=== PATIENT | male | born 1950 | race Caucasian/White ===

== ENCOUNTER 2017-07-28 23:51 | Inpatient (IN) | payer OTHER ==
[~2017-07-28] VITALS: Ht 182.9 cm; Wt 121.1 kg
[~2017-07-28 23:51] MED LIST: ALBU90OI INH; ATORVASTATIN CA80 MG PO; Aspirin EC81 MG; Atenolol50 MG PO; BUDE6HFA INH; CLON.5 PO; FLUSAL2505 INH; Flomax0.4 MG PO; SERT100 PO
[2017-07-29] MEDS ORDERED: METO50ER PO (00:28)
[2017-07-29 01:18] LABS: PCO2 Arterial 55.4 mmHg (35-45); PO2 Arterial 54.6 mmHg (80-100); pH Blood Arterial 7.35 (7.35-7.45)
[2017-07-29 01:24] LABS: BASOPHILS ABSOLUTE AUTO 0.04 K/mm3 (0.00-0.23); BASOPHILS PERCENT AUTO 1 % (0-2); EOSINOPHILS ABSOLUTE AUTO 0.12 K/mm3 (0.00-0.68); EOSINOPHILS PERCENT AUTO 2 % (0-6); Hematocrit 46.1 % (37.0-53.0); IMMATURE GRAN ABSOLUTE AUTO 0.03 K/mm3 (0.00-0.10); IMMATURE GRAN PERCENT AUTO 0 % (0-1); LYMPHOCYTES PERCENT AUTO 22 % (21-46); MONOCYTES PERCENT AUTO 11 % (4-13); Mean Corpuscular HGB 31.6 pg (26.0-34.0); Mean Corpuscular HGB Conc 32.5 g/dL (31.5-36.5); Mean Corpuscular Volume 97 fL (80-100); Mean Platelet Volume 9.7 fL (9.1-12.4); NEUTROPHILS ABSOLUTE AUTO 5.13 K/mm3 (1.96-9.15); NEUTROPHILS PERCENT AUTO 65 % (41-73); Platelet Count 151 K/mm3 (150-400); RDW Coefficient Variation 12.8 % (11.7-14.2); RDW Standard Deviation 45.9 fL (35.1-46.3); Red Blood Cell Count 4.74 M/mm3 (4.30-5.90); White Blood Cell Count 7.92 K/mm3 (4.00-11.30)
[2017-07-29 01:45] LABS: Alanine Aminotransfer (ALT/SGP 30 U/L (12-78); Albumin, Blood 3.4 g/dL (3.4-5.0); Albumin/Globulin Ratio 0.9 (0.8-1.8); Alk Phos 54 U/L (50-136); Anion Gap 5 mmol/L (6-16); Aspartate Aminotrans (AST/SGOT 21 U/L (12-37); Bilirubin, Total 0.5 mg/dL (0.1-1.0); Blood Urea Nitrogen 12 mg/dL (8-24); Bun/Creatinine Ratio 18.5 (12.0-20.0); CO2, Blood 29 mmol/L (21-32); Calcium, Blood 8.6 mg/dL (8.5-10.1); Chloride, Blood 107 mmol/L (98-108); Creatinine, Blood 0.65 mg/dL (0.60-1.20); Globulin, Blood 3.8 g/dL (2.2-4.0); Glomerular Filtration Rate >60 (60-); Glucose, Blood 121 mg/dL (70-99); Potassium, Blood 4.4 mmol/L (3.5-5.5); Sodium, Blood 141 mmol/L (136-145); Total Protein, Blood 7.2 g/dL (6.4-8.2); Troponin I <0.015 ng/mL (0.000-0.040)
[2017-07-30] MEDS ORDERED: ALBU3IS INH (13:49)
[2017-07-30] MEDS ORDERED: PRED20 PO (13:52)
[2017-12-04] MEDS ORDERED: ATEN50 (11:40)
[2017-12-04] MEDS ORDERED: Aspirin EC81 MG (11:41)
[2017-12-04] MEDS ORDERED: Rapaflo8 MG (11:41)
== END 2017-07-30 16:01 | disposition home or self-care (01) | DRG 189 ==
LOC: ER 23:51 → MEDS 23:52 → ENPENDDIS 07-30 11:00 → MEDS 07-30 16:01
PROVIDERS: Physician Assistant
DX: J96.02 Acute respiratory failure with hypercapnia (principal); J44.1 Chronic obstructive pulmonary disease with (acute) exacerbation; I25.10 Atherosclerotic heart disease of native coronary artery without angina pectoris; J96.01 Acute respiratory failure with hypoxia; I10 Essential (primary) hypertension; E78.5 Hyperlipidemia, unspecified; F17.200 Nicotine dependence, unspecified, uncomplicated; Z95.5 Presence of coronary angioplasty implant and graft; Z79.899 Other long term (current) drug therapy; Z85.51 Personal history of malignant neoplasm of bladder
CPT/HCPCS: 36415; 36600; 71046; 80053; 82803; 84145; 84484; 85025; 87070; 87077; 87186; 87205; 93005; 93010; 94640; 94644; 94760; 94761; 96372; 96374; 96376; 99285; G0378; J1650; J2930

== ENCOUNTER 2019-02-04 11:50 | Day surgery (SDC) | payer MEDICARE, OTHER ==
[~2019-02-04] VITALS: Ht 190.5 cm; Wt 133.2 kg
[~2019-02-04 11:50] MED LIST changes: +ALBU3IS INH; +ATEN50; +Aspir 8181 MG PO; +Crestor20 MG PO; +FINA5 PO; +METO50ER PO; +Nitrostat0.3 MG SL; +PRED20 PO; +Rapaflo8 MG; +SERT25 PO; +TAMS.4ER PO
--- NOTE | 2019-02-04 12:31 | NUR ---
02/04/19 1231 Krystyna Souza 1 IV MISS IN RH BY NARESH SHIELDS 1 GOOD IV IN RAC BY NARESH CHAPPELL TOW
--- NOTE | 2019-02-04 13:15 | NUR ---
02/04/19 1315 Ángela Ribeiro LATE ENTRY--PATIENT IN THE ROOM AND HOOKED UP TO MONITOR AND DR ESCOBAR PUSHED FIRST DOSE OF PROPOFOL. IV INFILTRATED. THIS WAS RESTARTED BY DR ESCOBAR IN LEFT WRIST WITH 20G. PATIENT TOLERATE IV START WELL. CASE PROCEEDED
== END 2019-02-04 14:41 | disposition home or self-care (01) ==
LOC: ORSCSDS 11:50
PROVIDERS: Internal Medicine Gastroenterology
PROC: 0DBL8ZX Excision of Transverse Colon, Via Natural or Artificial Opening Endoscopic, Diagnostic (ICD-10-PCS; principal; 2019-02-04 13:00)
PROC: 0DBH8ZX Excision of Cecum, Via Natural or Artificial Opening Endoscopic, Diagnostic (ICD-10-PCS; principal; 2019-02-04 13:00)
PROC: 0DBN8ZX Excision of Sigmoid Colon, Via Natural or Artificial Opening Endoscopic, Diagnostic (ICD-10-PCS; principal; 2019-02-04 13:00)
PROC: 0DBK8ZX Excision of Ascending Colon, Via Natural or Artificial Opening Endoscopic, Diagnostic (ICD-10-PCS; principal; 2019-02-04 13:00)
PROC: 0DBP8ZX Excision of Rectum, Via Natural or Artificial Opening Endoscopic, Diagnostic (ICD-10-PCS; principal; 2019-02-04 13:00)
DX: Z12.11 Encounter for screening for malignant neoplasm of colon (principal); Z86.010 Personal history of colon polyps; D12.0 Benign neoplasm of cecum; D12.2 Benign neoplasm of ascending colon; D12.3 Benign neoplasm of transverse colon; K63.5 Polyp of colon; D12.8 Benign neoplasm of rectum; K57.30 Diverticulosis of large intestine without perforation or abscess without bleeding; K64.8 Other hemorrhoids; I10 Essential (primary) hypertension; G47.33 Obstructive sleep apnea (adult) (pediatric); I25.10 Atherosclerotic heart disease of native coronary artery without angina pectoris; J44.9 Chronic obstructive pulmonary disease, unspecified; F17.210 Nicotine dependence, cigarettes, uncomplicated; E66.01 Morbid (severe) obesity due to excess calories; Z68.38 Body mass index [BMI] 38.0-38.9, adult; Z79.899 Other long term (current) drug therapy
CPT/HCPCS: 88305; J2704; J7120

== ENCOUNTER 2019-04-11 10:04 | Day surgery (SDC) | payer MEDICARE, OTHER ==
[~2019-04-11] VITALS: Ht 185.4 cm; Wt 134.6 kg
[~2019-04-11 10:04] MED LIST changes: +DILT120 PO
[2019-04-11] MEDS ORDERED: Aspir 8181 MG PO (10:46)
[2019-04-11] MEDS ORDERED: CLON1 PO (10:47)
--- NOTE | 2019-04-11 12:18 | NUR ---
PT BACK TO ROOM VIA RECLINER AFTER PROCEDURE. DENIES PAIN OR NEEDS. VSS, CALL LIGHT IN REACH. RIGHT RADIAL SITE WITH TR BAND AND SPLINT IN PLACE. NO BLEEDING OR SWELLING NOTED AT SITE.
--- NOTE | 2019-04-11 13:19 | NUR ---
PT VISITING WITH , EATING LUNCH. RIGHT RADIAL SITE REMAINS CDI, PT DENIES DISCOMFORT TO THE AREA.
--- NOTE | 2019-04-11 13:25 | NUR ---
IV DC'D, CATH INTACT. PT AND SPOUSE HAVE VERBALIZED UNDERSTANDING OF DC INSTRUCTIONS AND FOLLOW UP INFO. PT OUT TO CAR VIA WHEELCHAIR.
[2019-04-11] MEDS ORDERED: CLOP75 PO (13:35)
[2019-04-11] MEDS ORDERED: Isosorbide Mono30 MG PO (13:36)
--- NOTE | 2019-04-11 14:44 | NUR ---
TR BAND HAS BEEN FULLY DEFLATED. NO BLEEDING OR SWELLING AT THE SITE.
== END 2019-04-11 15:25 | disposition home or self-care (01) ==
LOC: MHTC 10:04
PROC: B201YZZ Plain Radiography of Multiple Coronary Arteries using Other Contrast (ICD-10-PCS; principal; 2019-04-11)
PROC: 4A023N7 Measurement of Cardiac Sampling and Pressure, Left Heart, Percutaneous Approach (ICD-10-PCS; principal; 2019-04-11)
PROC: B205YZZ Plain Radiography of Left Heart using Other Contrast (ICD-10-PCS; principal; 2019-04-11)
DX: I25.118 Atherosclerotic heart disease of native coronary artery with other forms of angina pectoris (principal); I25.82 Chronic total occlusion of coronary artery; J45.909 Unspecified asthma, uncomplicated; E78.5 Hyperlipidemia, unspecified; I47.1 Supraventricular tachycardia; F17.210 Nicotine dependence, cigarettes, uncomplicated; Z79.899 Other long term (current) drug therapy; Z79.82 Long term (current) use of aspirin
CPT/HCPCS: 76937; 85347; 93458; 93571; 99152; 99153; C1769; C1887; C1894; J1644; J2250; J3010; J7030; Q9967

== ENCOUNTER → 2019-07-06 | Outpatient (CLI) | payer MEDICARE, OTHER ==
[~2019-07-06] MED LIST changes: +CLON1 PO; +CLOP75 PO; +Isosorbide Mono30 MG PO
== END | disposition home or self-care (01) ==
LOC: LAB SHORT 14:59 → PLD 14:59
DX: D23.5 Other benign neoplasm of skin of trunk (principal)
CPT/HCPCS: 88305

== ENCOUNTER 2020-06-12 10:17 | Day surgery (SDC) | payer MEDICARE, OTHER ==
[~2020-06-12] VITALS: Ht 185.4 cm; Wt 143.0 kg
[2020-06-12] MEDS ORDERED: FINA5 PO (10:46)
[2020-06-12] MEDS ORDERED: FISH OIL 1,2001 EAC7 PO (10:49)
[2020-06-12] MEDS ORDERED: Vitamin D2000 UNIT PO (10:50)
[2020-06-12] MEDS ORDERED: CENTRUM SILVER1 EAC2 PO (10:50)
--- NOTE | 2020-06-12 11:18 | NUR ---
06/12/20 1118 Misti Laird IV ATTEMPT X 2 IN RIGHT HAND BY ME, ONCE IN LEFT FA BY NAERSH MIRANDA, SUCCESS IN RIGHT A/C BY JOAN INFANTE
--- NOTE | 2020-06-12 12:52 | NUR ---
06/12/20 1252 JOAN JOHNSTON 6.5ML NS INJECTED TO ELEVATE SIGMOID COLON POLYPS
== END 2020-06-12 13:13 | disposition home or self-care (01) ==
LOC: ORSCSDS 10:17
PROVIDERS: Internal Medicine Gastroenterology
PROC: 0DBN8ZX Excision of Sigmoid Colon, Via Natural or Artificial Opening Endoscopic, Diagnostic (ICD-10-PCS; principal; 2020-06-12 11:30)
PROC: 0DBL8ZX Excision of Transverse Colon, Via Natural or Artificial Opening Endoscopic, Diagnostic (ICD-10-PCS; principal; 2020-06-12 11:30)
DX: Z86.010 Personal history of colon polyps (principal); D12.3 Benign neoplasm of transverse colon; D12.5 Benign neoplasm of sigmoid colon; K57.30 Diverticulosis of large intestine without perforation or abscess without bleeding; K64.8 Other hemorrhoids; I10 Essential (primary) hypertension; J44.9 Chronic obstructive pulmonary disease, unspecified; G47.33 Obstructive sleep apnea (adult) (pediatric); Z87.891 Personal history of nicotine dependence; Z79.899 Other long term (current) drug therapy; Z79.82 Long term (current) use of aspirin
CPT/HCPCS: 88305; J2250; J2405; J2704; J7120

== ENCOUNTER → 2021-01-24 | Outpatient (CLI) | payer MEDICARE, OTHER ==
[~2021-01-24] MED LIST changes: +CENTRUM SILVER1 EAC2 PO; +FISH OIL 1,2001 EAC7 PO; +Vitamin D2000 UNIT PO
== END | disposition home or self-care (01) ==
LOC: LAB SHORT 11:17
DX: L30.8 Other specified dermatitis (principal)
CPT/HCPCS: 88305; 88312

== ENCOUNTER → 2022-11-24 | Outpatient (CLI) | payer MEDICARE, OTHER ==
[~2022-11-24] MED LIST changes: +AVALIDE 300-121 EACH PO; +Amoxicillin875 MG PO; +BREZTRI AEROS10.7 GM INH; +Crestor40 MG PO; +EZET10 PO; +IRBE150 PO; +METF500C PO; +MONT10T PO; +Prednisone20 MG PO
== END | disposition home or self-care (01) ==
LOC: LAB SHORT 12:04 → PLD 12:04
DX: D48.5 Neoplasm of uncertain behavior of skin (principal)
CPT/HCPCS: 88305

== ENCOUNTER → 2023-06-11 | Outpatient (CLI) | payer MEDICARE, OTHER | LOC: PLD 12:14 → LAB SHORT 12:14 | DX: L72.8 Other follicular cysts of the skin and subcutaneous tissue (principal) | CPT/HCPCS: 88304 ==

== ENCOUNTER 2024-03-11 09:03 | Day surgery (SDC) | payer MEDICARE, OTHER ==
[~2024-03-11] VITALS: Ht 185.4 cm; Wt 138.2 kg
[~2024-03-11 09:03] MED LIST changes: +1/2 NS 250ml250 ML; +ALBU2.5V5 INH; +ALBU8HFA2 INH; +ALBU90OI; +FISH OIL 1,0001 EA10 PO; +GABA100 PO; +IPRAT-ALBUT 0.5-3 ML INH; +Imdur30 MG PO; +JARDIANCE10 MG PO; +LEVO750 PO; +METF500 PO; +METO25ER PO; +NITR.4SL SL; +Prednisone10 MG PO; +SERT50 PO; +TRAZ50 PO; +VISBIOME 112.51 EACH PO; +VITAMIN D350 MC3 PO
[2024-03-11] MEDS ORDERED: Lactated Ringer's 1,000 ML IV ONE ×2 (09:36→10:13)
[2024-03-11] MEDS ORDERED: MONT10T (09:46)
[2024-03-11] MEDS ORDERED: propofoL 50 ML IV ONE ×3 (10:11→11:03)
[2024-03-11 12:24] VITALS: BP 153/76
--- NOTE | 2024-03-11 12:30 | NUR ---
03/11/24 1230 Lisa Zapata WHEN ASKED PT. IF HE HAD ANY PAIN, PT. VERBALIZES HIS ABDOMEN FELT "CRAMPY & ACHY." PT. INSTRUCTED THAT IT MAY BE SOME AIR STILL LEFT IN HIS COLON & TO PASS OUT AIR BUT EVENTUALLY IT WOULD ABSORB. PT. VERBALIZES ABD. PAIN WAS TOLERABLE.
== END 2024-03-11 12:13 | disposition home or self-care (01) ==
LOC: ORSCSDS 09:03
PROVIDERS: Internal Medicine Gastroenterology
PROC: 0DBP8ZX Excision of Rectum, Via Natural or Artificial Opening Endoscopic, Diagnostic (ICD-10-PCS; principal; 2024-03-11 10:15)
PROC: 0DBH8ZX Excision of Cecum, Via Natural or Artificial Opening Endoscopic, Diagnostic (ICD-10-PCS; principal; 2024-03-11 10:15)
PROC: 0DBL8ZX Excision of Transverse Colon, Via Natural or Artificial Opening Endoscopic, Diagnostic (ICD-10-PCS; principal; 2024-03-11 10:15)
PROC: 0DBM8ZX Excision of Descending Colon, Via Natural or Artificial Opening Endoscopic, Diagnostic (ICD-10-PCS; principal; 2024-03-11 10:15)
PROC: 0DBK8ZX Excision of Ascending Colon, Via Natural or Artificial Opening Endoscopic, Diagnostic (ICD-10-PCS; principal; 2024-03-11 10:15)
PROC: 0DBN8ZX Excision of Sigmoid Colon, Via Natural or Artificial Opening Endoscopic, Diagnostic (ICD-10-PCS; principal; 2024-03-11 10:15)
DX: Z12.11 Encounter for screening for malignant neoplasm of colon (principal); Z86.0100 Personal history of colon polyps, unspecified; D12.5 Benign neoplasm of sigmoid colon; K62.1 Rectal polyp; D12.3 Benign neoplasm of transverse colon; D12.0 Benign neoplasm of cecum; D12.2 Benign neoplasm of ascending colon; D12.4 Benign neoplasm of descending colon; K57.30 Diverticulosis of large intestine without perforation or abscess without bleeding; K64.4 Residual hemorrhoidal skin tags; I10 Essential (primary) hypertension; I25.10 Atherosclerotic heart disease of native coronary artery without angina pectoris; G47.33 Obstructive sleep apnea (adult) (pediatric); J44.89 Other specified chronic obstructive pulmonary disease; Z87.891 Personal history of nicotine dependence; E66.01 Morbid (severe) obesity due to excess calories; Z68.41 Body mass index [BMI] 40.0-44.9, adult; Z85.51 Personal history of malignant neoplasm of bladder; Z79.02 Long term (current) use of antithrombotics/antiplatelets; Z79.82 Long term (current) use of aspirin; Z79.899 Other long term (current) drug therapy
CPT/HCPCS: 82947; 88305; J2704; J7120

== ENCOUNTER 2025-03-22 08:46 | Day surgery (SDC) | payer MEDICARE, OTHER ==
[~2025-03-22] VITALS: Ht 185.4 cm; Wt 129.1 kg
[~2025-03-22 08:46] MED LIST changes: +MONT10T
[2025-03-22] MEDS ORDERED: Midazolam HCL 1 MG/ML 5MLVIAL ONE (10:59)
[2025-03-22 12:19] VITALS: BP 106/84
== END 2025-03-22 12:25 | disposition home or self-care (01) ==
LOC: ORSCSDS 08:46
PROVIDERS: Internal Medicine Gastroenterology
PROC: 0DBM8ZX Excision of Descending Colon, Via Natural or Artificial Opening Endoscopic, Diagnostic (ICD-10-PCS; principal; 2025-03-22 10:00)
PROC: 0DBL8ZX Excision of Transverse Colon, Via Natural or Artificial Opening Endoscopic, Diagnostic (ICD-10-PCS; principal; 2025-03-22 10:00)
DX: Z12.11 Encounter for screening for malignant neoplasm of colon (principal); D12.3 Benign neoplasm of transverse colon; K63.5 Polyp of colon; K57.30 Diverticulosis of large intestine without perforation or abscess without bleeding; K64.4 Residual hemorrhoidal skin tags; Z86.0101 Personal history of adenomatous and serrated colon polyps; I25.10 Atherosclerotic heart disease of native coronary artery without angina pectoris; I10 Essential (primary) hypertension; I48.91 Unspecified atrial fibrillation; E11.9 Type 2 diabetes mellitus without complications; Z86.16 Personal history of COVID-19; Z85.51 Personal history of malignant neoplasm of bladder; G47.33 Obstructive sleep apnea (adult) (pediatric); J44.9 Chronic obstructive pulmonary disease, unspecified; E78.5 Hyperlipidemia, unspecified; E66.01 Morbid (severe) obesity due to excess calories; Z68.37 Body mass index [BMI] 37.0-37.9, adult; F41.0 Panic disorder [episodic paroxysmal anxiety]; N40.0 Benign prostatic hyperplasia without lower urinary tract symptoms; Z79.01 Long term (current) use of anticoagulants; Z79.02 Long term (current) use of antithrombotics/antiplatelets; Z79.84 Long term (current) use of oral hypoglycemic drugs; Z79.899 Other long term (current) drug therapy; Z87.891 Personal history of nicotine dependence
CPT/HCPCS: 82947; 88305; J2250; J2704; J7120